=== PATIENT | female | born 1985 | race African-American/Black ===

== ENCOUNTER 2023-09-16 11:09 | Emergency (ER) | payer OTHER ==
[~2023-09-16] VITALS: Ht 177.8 cm; Wt 95.0 kg
[2023-09-16 11:13] VITALS: BP 165/80; PULSE 85; RESP 18; TEMP 98.2; O2SAT 99
[2023-09-16] MEDS ORDERED: SODIUM CHLORIDE 0.9% 1,000 ML IV ONE (11:30)
[2023-09-16 12:05] LABS: BASOPHILS % 0.4 % (0.0-2.0); EOSINOPHILS % 2.5 % (0.0-5.0); HEMATOCRIT. 32.2 % (36.0-48.0); HEMOGLOBIN. 10.3 g/dL (12.0-16.0); LYMPHOCYTES % 18.3 % (20.0-50.0); MEAN CORPUSCULAR HEMOGLOBIN 25.8 pg (28.0-32.0); MEAN CORPUSCULAR HGB CONC 31.9 g/dL (31.0-37.0); MEAN CORPUSCULAR VOLUME 80.9 fL (81.0-99.0); MEAN PLATELET VOLUME 8.3 fl (7.4-10.4); MONOCYTES % 10.1 % (2.0-8.0); NEUTROPHILS % 68.7 % (40.0-76.0); PLATELET 206 x1000/uL (130-400); RED BLOOD CELL COUNT 3.98 mill/uL (4.2-5.4); RED CELL DISTRIBUTION WIDTH 14.3 % (11.6-14.6); WHITE BLOOD COUNT 6.5 x1000/uL (4.5-11.0)
[2023-09-16 12:07] LABS: CHLORIDE 111 mEq/L (98-107); POTASSIUM 4.5 mEq/L (3.5-5.1); SODIUM 140 mEq/L (136-145)
[2023-09-16 12:08] LABS: CALCIUM 9.2 mg/dL (8.7-10.4); CARBON DIOXIDE 21 mEq/L (21-32)
[2023-09-16 12:13] LABS: GLUCOSE 72 mg/dL (70-105); UREA NITROGEN BLOOD 23 mg/dL (9-23)
[2023-09-16 12:15] LABS: TROPONIN I HIGH SENSITIVITY 11 ng/L (3.0-34)
[2023-09-16 12:19] LABS: HCG SCREEN NEGATIVE
[2023-09-16 12:37] LABS: BETA HYDROXYBUTYRATE 0.4 mMol/L (0.0-0.3)
== END 2023-09-16 16:06 | disposition home or self-care (01) ==
LOC: ER 11:09
DX: R53.1 Weakness (principal); E11.9 Type 2 diabetes mellitus without complications; I10 Essential (primary) hypertension
CPT/HCPCS: 99283; 80048; 82010; 84703; 85025; 84484; 36415; J7030